=== PATIENT | female | born 1950 | race American Indian/Alaskan Native ===

== ENCOUNTER 2019-05-17 05:55 | Day surgery (SDC) | payer MEDICARE ==
[~2019-05-17 05:55] MED LIST: SODIUM CHLORIDE 0.9% 1000 ML 1,000 ML IV SCH
[2019-05-17] MEDS ORDERED: ceFAZolin/Water 2 GM/20 ML 2 GM/20 ML SYRINGE IV NR (06:00)
[2019-05-17] MEDS ORDERED: METOPROLOL TARTRATE 50 MG TAB PO SCH (07:19)
[2019-05-17] MEDS ORDERED: cloNIDine 0.1 MG TAB PO SCH (07:19)
[2019-05-17] MEDS ORDERED: PROTAMINE SULFATE 50 MG/5 ML INJ ONE (07:29)
[2019-05-17] MEDS ORDERED: HEPARIN 10,000 UNITS/10 ML VIAL ONE (07:29)
[2019-05-17] MEDS ORDERED: GELATIN SPONGE SIZE 100 TP ONE ×2 (07:30→10:40)
[2019-05-17] MEDS ORDERED: THROMBIN (RECOMBINANT) 5,000 UNIT VIAL TP ONE ×4 (07:30→10:39)
[2019-05-17] MEDS ORDERED: SODIUM CHLORIDE 0.9% 250ML 250 ML ONE (07:30)
--- NOTE | 2019-05-17 07:35 | Anesthesia Consultation ---
Anesthesia Consult and Med Hx Date of service: 05/17/19 - Airway Anesthetic Teeth Evaluation: Edentulous ROM Head & Neck: Adequate Mental/Hyoid Distance: Adequate Mallampati Class: Class II Intubation Access Assessment: Probably Good - Pulmonary Exam CTA: Yes - Cardiac Exam Cardiac Exam: RRR - Pre-Operative Health Status ASA Pre-Surgery Classification: ASA3 Proposed Anesthetic Plan: General - Pulmonary Hx Smoking: Yes Hx Respiratory Symptoms: No Hx Sleep Apnea: Yes - Cardiovascular System Hx Hypertension: Yes (will give home dosse antihypertensives this morning) Hx Heart Attack/AMI: No Hx Percutaneous Transluminal Coronary Angioplasty (PTCA): No Hx Cardia Arrhythmia: No - Central Nervous System CVA: No Hx Psychiatric Problems: Yes (depression) - Endocrine Hx Renal Disease: Yes Hx End Stage Renal Disease: Yes (last HD 3yrs ago) Hx Liver Disease: Yes (HCV; possible hx cirrhosis?) Hx Insulin Dependent Diabetes: Yes Hx Thyroid Disease: No - Hematic Hx Anemia: Yes - Other Systems Hx Cancer: Yes (leukemia) Hx Obesity: Yes (BMI 30) - Additional Comments Anesthesia Medical History Comments: No hx anesthetic complications.
--- NOTE | 2019-05-17 07:36 | Anesthesia Day of Surgery ---
Anesthesia Day of Surgery - Day of Surgery Patient Examined: Yes Patient H&P Reviewed: Yes Patient is NPO: Yes Beta Blockers: Yes (will give home dose metoprolol in preop)
[2019-05-17] MEDS ORDERED: propofoL 200 MG/20 ML VIAL IV ONE (07:39)
[2019-05-17] MEDS ORDERED: HYDROmorphone 1 MG/1 ML INJ ONE (07:39)
[2019-05-17] MEDS ORDERED: LIDOCAINE MPF (2%) 20 MG/1 ML VIAL 5 ML ONE (07:41)
[2019-05-17 08:08] LABS: Basophils # (Auto) 0.1 K/mm3 (0.0-0.1); Basophils % (Auto) 1.1 % (0.0-1.8); Eosinophils # (Auto) 0.4 K/mm3 (0.0-0.4); Eosinophils % (Auto) 7.8 % (0.0-4.3); Hematocrit 34.9 % (30.3-42.9); Hemoglobin 11.1 gm/dl (10.1-14.3); Lymphocytes # (Auto) 1.2 K/mm3 (1.2-5.4); Lymphocytes % (Auto) 22.8 % (13.4-35.0); Mean Corpuscular HGB Conc 32 % (30-34); Mean Corpuscular Volume 82 fl (79-97); Monocytes # (Auto) 0.5 K/mm3 (0.0-0.8); Monocytes % (Auto) 8.8 % (0.0-7.3); Platelet Count 103 K/mm3 (140-440); Red Blood Count 4.28 M/mm3 (3.65-5.03); Red Cell Distribution Width 19.3 % (13.2-15.2)
[2019-05-17 08:20] LABS: Calcium 9.3 mg/dL (8.4-10.2)
[2019-05-17] MEDS ORDERED: HEPARIN 10,000 UNITS/10 ML VIAL IR ONE (09:48)
[2019-05-17] MEDS ORDERED: SODIUM CHLORIDE 0.9% IRR 1,500 ML BOTTLE IR ONE (09:49)
[2019-05-17] MEDS ORDERED: SODIUM CHLORIDE 0.9% 250 ML IVPB IR ONE (09:49)
[2019-05-17] MEDS ORDERED: PROTAMINE SULFATE 50 MG/5 ML INJ IV ONE (10:41)
[2019-05-17] MEDS ORDERED: ONDANSETRON 4 MG/2 ML INJ ONE ×2 (11:08→12:07)
[2019-05-17] MEDS ORDERED: oxyCODONE /ACETAMINOPHEN 5-325MG TAB PO PRN ×2 (11:18→11:48)
--- NOTE | 2019-05-17 11:18 | Post Operative Note ---
Pre-op diagnosis: Stage IV CKD Post-op diagnosis: same Procedure: Left Upper Extremity AV Graft Insertion Anesthesia: GETA Surgeon: CODY SALINAS Estimated blood loss: other (25ml) Pathology: none Condition: stable Disposition: PACU
--- NOTE | 2019-05-17 11:21 | Short Stay Summary ---
Short Stay Documentation Date of service: 05/17/19 - History H&P: obtained from office Past Medical History: diabetes, renal failure - Allergies and Medications Current Medications: Allergies ibuprofen [From Motrin] Adverse Reaction (Severe, Verified 05/09/19 15:55) Shortness of Breath swelling morphine Adverse Reaction (Intermediate, Verified 05/09/19 15:55) Itching Home Medications Medication Instructions Recorded Confirmed Last Taken Type Basaglar Kwikpen U-100 20 units SUB-Q QHS 05/09/19 05/17/19 05/16/19 18:00 History Calcitriol 25 mg PO DAILY 05/09/19 05/17/19 05/16/19 18:00 History Esomeprazole Magnesium 40 mg PO DAILY 05/09/19 05/17/19 05/16/19 18:00 History Furosemide 20 mg PO DAILY 05/09/19 05/17/19 05/10/19 08:00 History Gabapentin 100 mg PO TID 05/09/19 05/17/19 05/16/19 18:00 History Inpen (For Novolog) 7 units SUB-Q 05/09/19 Unknown History Megestrol 5 mg PO QID 05/09/19 05/17/19 05/16/19 18:00 History Metoprolol 50 mg PO BID 05/09/19 05/17/19 05/17/19 08:40 History Nexavar 200 mg PO DAILY 05/09/19 05/17/19 05/16/19 18:00 History Rosuvastatin Calcium 5 mg PO DAILY 05/09/19 05/17/19 05/16/19 18:00 History Vitamin D2 1.25 mg PO 1XW 05/09/19 05/17/19 05/14/19 08:00 History cloNIDine 0.1 mg PO BID 05/09/19 05/17/19 05/17/19 08:40 History hydrOXYzine 25 mg PO BID 05/09/19 05/17/19 05/16/19 18:00 History Active Medications Clonidine HCl (Catapres) 0.1 mg PO PREOP ALIYAH Last Admin: 05/17/19 08:40 Dose: 0.1 mg Documented by: Fentanyl (Sublimaze) 50 mcg IV Q5MIN PRN PRN Reason: Pain , Severe (7-10) Stop: 02/28/20 07:35 Sodium Chloride (Nacl 0.9% 1000 Ml) 1,000 mls @ 42 mls/hr IV DIRECT ALIYAH Last Admin: 05/17/19 08:00 Dose: 42 mls/hr Documented by: Cefazolin Sodium (Ancef/Sterile Water 2 Gm/20 Ml) 2 gm in 20 mls @ 80 mls/hr IV PREOP NR; Protocol Stop: 05/17/19 16:00 Metoprolol Tartrate (Metoprolol) 50 mg PO PREOP ALIYAH Last Admin: 05/17/19 08:40 Dose: 50 mg Documented by: - Physical exam General appearance: no acute distress Lungs: Normal air movement Extremities: no ischemia - Hospital course Hospital course: the patient was taken to the operating room and had a left arm av graft insertion performed. please refer to the operative note concerning the details of the procedure. the patient tolerated the procedure well and was discharged home in stable condition. - Disposition Condition at discharge: Stable Disposition: [id number]-01 TO HOME OR SELFCARE - Discharge Diagnoses (1) CKD (chronic kidney disease) stage 4, GFR 15-29 ml/min Status: Acute Short Stay Discharge Plan Follow up with: CHRIS NO MD [Primary Care Provider] - 7 Days
[2019-05-17] MEDS: fentaNYL 100 MCG/2 ML INJ IV PRN ×2 (11:24→11:42)
[2019-05-17] MEDS ORDERED: PHENYLEPHRINE/NS 1,000 MCG/10 ML SYRINGE (OR USE) IV ONE (11:30)
--- NOTE | 2019-05-17 11:47 | Operative Report ---
STAFF SURGEON: Dr. Tyrone Amaral. PREOPERATIVE DIAGNOSIS: Stage 4 chronic kidney disease. POSTOPERATIVE DIAGNOSIS: Stage 4 chronic kidney disease. PROCEDURE PERFORMED: Left upper extremity AV graft insertion. COMPLICATIONS: None. ESTIMATED BLOOD LOSS: 25 mL. ANESTHESIA: General. INDICATIONS FOR PROCEDURE: This is a 68-year-old female with multiple medical problems in addition to worsening renal function in which the patient was referred for access creation. The patient had a preoperative vein mapping that demonstrated suitable veins for a fistula creation and so the patient was scheduled to undergo AV graft insertion. The patient was explained the risks, benefits and alternatives of procedure, expressed understanding and wished to proceed. DESCRIPTION OF PROCEDURE: After appropriate consent was obtained, the patient was brought back to the operating room and placed on the operating table in supine position with left arm extended. The patient was given appropriate medication for general anesthesia, had LMA placed without difficulty. Left arm was prepped and draped in the usual sterile fashion with ChloraPrep. Appropriate preoperative antibiotics were administered and appropriate time-out performed indicating the correct patient, procedure, and site of the procedure. We then began the operation by making a longitudinal incision near the antecubital fossa. This was carried through the subcutaneous tissue with a combination of blunt dissection and electrocautery. Dissection was continued through the bicipital aponeurosis which allowed to expose the brachial artery which was found to be suitable size and this was mobilized for appropriate distance both proximally and distally. We then proceeded to make a transverse incision near the axilla. This was carried through the subcutaneous tissue with a combination of blunt dissection and electrocautery. Dissection was continued through the fascia overlying the axillary neurovascular bundle. The axillary vein was identified and found to be suitable for a graft insertion and so this was mobilized for appropriate distance both proximally and distally. We then proceeded to make a subcutaneous tunnel bringing through a 4-7 mm Propaten graft. The patient was given 5000 units of unfractionated heparin. After appropriate timeout elapsed, the vascular clamps were placed on the brachial artery, both proximally and distally. Longitudinal arteriotomy was made with an 11 blade and extended with Oliveros scissors. The graft was appropriately spatulated and an end-to-side anastomosis was performed with a running 6-0 Prolene suture. Once complete, flow was established through the graft, we had a nice pulsatile flow. The graft was then cut to an appropriate length and spatulated. Vascular clamps were then placed on the axillary vein, both proximally and distally. Longitudinal venotomy was performed with an 11 blade and extended with Oliveros scissors. An end-to-side anastomosis was performed with a running 6-0 Prolene suture. Once complete flow was reestablished through the graft, we had a nice palpable thrill. There was 1 area on the vein that was repaired with a 6-0 Prolene suture. Once complete satisfied with a palpable thrill, we then proceeded to obtain hemostasis along our suture line, which was obtained with hemostatic agents. Once we were satisfied with hemostasis, we then proceeded to close both wounds with a deep subcutaneous layer with interrupted 3-0 PDS. Skin was approximated with sixto. Appropriate dressing was placed. The patient tolerated the procedure well, emerged from the general anesthesia, the LMA removed and was sent to recovery in stable condition. All the sponges, instrument and needle counts were correct at completion of the operation. JOB# [id number] ARLETTE/ALDEN
[2019-05-17] MEDS ORDERED: ONDANSETRON 4 MG/2 ML INJ IV PRN (12:08)
[2019-05-17 12:15] VITALS: BP 162/80
== END 2019-05-17 13:00 | disposition home or self-care (01) ==
LOC: OR 05:55
PROVIDERS: ATTEND Surgery Vascular Surgery
DX: I12.0 Hypertensive chronic kidney disease with stage 5 chronic kidney disease or end stage renal disease (principal); E11.22 Type 2 diabetes mellitus with diabetic chronic kidney disease; N18.6 End stage renal disease; G43.909 Migraine, unspecified, not intractable, without status migrainosus; J43.9 Emphysema, unspecified; G47.30 Sleep apnea, unspecified; K21.9 Gastro-esophageal reflux disease without esophagitis; E66.9 Obesity, unspecified; F32.9 Major depressive disorder, single episode, unspecified; Z88.5 Allergy status to narcotic agent; Z88.8 Allergy status to other drugs, medicaments and biological substances; Z79.899 Other long term (current) drug therapy; Z87.891 Personal history of nicotine dependence; Z98.41 Cataract extraction status, right eye; Z98.42 Cataract extraction status, left eye; Z90.49 Acquired absence of other specified parts of digestive tract; Z68.30 Body mass index [BMI] 30.0-30.9, adult; Z90.710 Acquired absence of both cervix and uterus; Z99.2 Dependence on renal dialysis; Z98.890 Other specified postprocedural states; Z86.2 Personal history of diseases of the blood and blood-forming organs and certain disorders involving the immune mechanism
CPT/HCPCS: 36415; 36830; 80048; 82962; 85025; A4649; C1768; J0690; J1170; J1642; J1644; J2370; J2405; J2704; J2720; J3010; J7030; J7050